=== PATIENT | female | born 1960 | race Caucasian/White ===

== ENCOUNTER → 2017-04-03 | Outpatient (CLI) | payer BC ==
[2017-04-03 13:01] LABS: HEMATOCRIT 41.9 % (37.0-47.0); MEAN CORPUSCULAR HEMOGLOBIN 31.5 PG (27-31); MEAN CORPUSCULAR HGB CONC 33.4 g/dL (33-37); MEAN CORPUSCULAR VOLUME 94.4 FL (81-99); MEAN PLATELET VOLUME 9.8 FL (7.4-12.2); RED BLOOD COUNT 4.44 10^6/uL (4.20-5.40)
[2017-04-03 13:05] LABS: BLOOD UREA NITROGEN 16 mg/dL (7-22); CALCIUM 9.3 mg/dL (8.7-10.7); CHOL/HDL RATIO 2.77 RATIO (0-4.0); EST GLOMERULAR FILTRATION > 60 (>60 ml/min/1.73m(2)); HDL CHOLESTEROL 57 mg/dL (40-150); SERUM ALBUMIN 4.2 g/dL (3.5-4.8); SERUM CHOLESTEROL 158 mg/dL (120-200)
[2017-04-03 13:30] LABS: HEMOGLOBIN A1C 5.18 % (4.2-6.0)
--- NOTE | 2017-04-03 13:44 | DI ---
XR FOOT COMPLETE MIN 3VW,04/03/2017 1:13 PM: Clinical History: Injury of the right ankle. Previous Exam: April 27, 2015 Findings: 3 views of the right foot are obtained, and demonstrate anatomic alignment without fractures. There a re degenerative changes worst at the right first tarsometatarsal joint. Overlying soft tissue swellin g is seen. Impression: No fractures.
[2017-04-03 13:45] LABS: FREE T4 (FREE THYROXINE) 0.97 ng/dL (0.93-1.71)
== END ==
LOC: RAD 12:32
PROVIDERS: ATTEND Nurse Practitioner Family
DX: Z00.00 Encounter for general adult medical examination without abnormal findings (principal); I10 Essential (primary) hypertension; E03.9 Hypothyroidism, unspecified; R63.5 Abnormal weight gain; E88.81 Metabolic syndrome and other insulin resistance; S99.911A Unspecified injury of right ankle, initial encounter; M19.071 Primary osteoarthritis, right ankle and foot; M25.471 Effusion, right ankle
CPT/HCPCS: 36415; 73630; 80053; 80061; 83036; 84439; 84443; 85027